=== PATIENT | male | born 1960 | race American Indian/Alaskan Native ===

== ENCOUNTER 2019-11-05 11:37 | Day surgery (SDC) | payer OTHER ==
[~2019-11-05 11:37] MED LIST: SODIUM CHLORIDE 0.9% 1000 ML 1,000 ML IV SCH
[2019-11-05] MEDS ORDERED: LIDOCAINE MPF (2%) 20 MG/1 ML VIAL 5 ML ONE (13:00)
--- NOTE | 2019-11-05 13:00 | Anesthesia Consultation ---
Anesthesia Consult and Med Hx Date of service: 11/05/19 - Airway Anesthetic Teeth Evaluation: Poor (broken off upper left back), Chipped (upper front) ROM Head & Neck: Adequate Mental/Hyoid Distance: Adequate Mallampati Class: Class II Intubation Access Assessment: Probably Good - Pre-Operative Health Status ASA Pre-Surgery Classification: ASA3 Proposed Anesthetic Plan: MAC - Pulmonary Hx Smoking: Yes (former smoker) Hx Asthma: No COPD: No Hx Pneumonia: No Hx Sleep Apnea: No - Cardiovascular System Hx Hypertension: Yes Hx Coronary Artery Disease: No Hx Heart Attack/AMI: Yes (non-STEMI March 2014) Hx Angina: No Hx Percutaneous Transluminal Coronary Angioplasty (PTCA): Yes Hx Pacemaker: No Hx Internal Defibrillator: No Hx Valvular Heart Disease: No Hx Heart Murmur: No Hx Peripheral Vascular Disease: No - Central Nervous System Hx Seizures: No CVA: No Hx Psychiatric Problems: No - Gastrointestinal Hx Ulcer: No Hx Gastroesophageal Reflux Disease: No (p) - Endocrine Hx Renal Disease: No Hx End Stage Renal Disease: No Hx Cirrhosis: No Hx Liver Disease: Yes (pencreatitis) Hx Hypothyroidism: No Hx Hyperthyroidism: No - Hematic Hx Anemia: No Hx Sickle Cell Disease: No - Other Systems Hx Alcohol Use: Yes (h/o ETOH abuse, quit 3 years ago) Hx Cancer: No
--- NOTE | 2019-11-05 13:01 | Anesthesia Day of Surgery ---
Anesthesia Day of Surgery - Day of Surgery Patient Examined: Yes Patient H&P Reviewed: Yes Patient is NPO: Yes
[2019-11-05] MEDS ORDERED: PROPOFOL 200 MG/20 ML VIAL IV ONE ×2 (13:03→13:04)
--- NOTE | 2019-11-05 13:36 | Discharge Summary ---
Short Stay Discharge Plan Activity: advance as tolerated Weight Bearing Status: Weight Bear as Tolerated Diet: regular Follow up with: MOISES BLANK [Other] - 7 Days
--- NOTE | 2019-11-05 13:36 | Operative Report ---
Operative Report Operative Report: Procedure: Colonoscopy with submucosal injection and snare polypectomy. Attending physician: Bill Campbell MD Communication Assistant: Bill Campbell MD Indication: Patient is a 59-year-old male who presents for colonoscopy, for colorectal cancer screening. A colonoscopy serves to evaluate patient so that treatment may be directed based on the findings. Consent: Informed consent was obtained after advising the patient and family regarding nature of this procedure, its indications, potential benefits as well as possible complications including but not limited to bleeding perforation and adverse reaction to medication, infection as well as other cardiopulmonary complications. An informed written and verbal consent was then obtained after due opportunity was provided for questions and answers. Monitoring: Patient was monitored continuously with pulse oximetry and electrocardiographic recordings as well as blood pressure recordings. Vital signs remained stable throughout this procedure with no untoward events. Preoperative assessment: Patient was assessed immediately prior to this procedure for capacity to tolerate monitored anesthesia care and moderate sedation as well as general anesthesia. Patient's ASA classification is 2, Mallampati class is 2, Hyomental distance is 3. Instrument: Olympus videocolonoscope CFHQ 190 AL. Medications: Propofol given intravenously in divided doses. For details please refer to anesthesia records. Description of procedure: Patient was placed in the left lateral decubitus position after achieving sedation, a digital rectal examination was performed following which the colonoscope was introduced into the anal verge and advanced to the cecum which was identified by the cecal valve, the appendiceal orifice, as well as by the cecal strap and direct transillumination. The colonoscope was subsequently withdrawn with careful inspection of all mucosal surfaces. Patient tolerated this procedure well and was subsequently taken to the recovery room. The following findings were noted. Findings: The [place] prep scale score was 6. Patient had a flat polyp measuring approximately 8-10 mm in the sigmoid colon. This was elevated with submucosal injection of saline and removed by snare electrocautery and retrieved. On the retroflex view at the anal verge, patient had internal hemorrhoids. Patient tolerated the procedure well with no untoward events. Impression: Flat sigmoid colon polyp status post submucosal injection and snare polypectomy. Internal hemorrhoids. Plan: Follow-up pathology report High-fiber diet. Repeat colonoscopy in 5 years if polyp polyp is adenomatous.
[2019-11-05 14:28] VITALS: BP 150/90
== END 2019-11-05 11:38 | disposition home or self-care (01) ==
LOC: GIO 11:37
PROVIDERS: ATTEND Internal Medicine Gastroenterology
DX: K62.5 Hemorrhage of anus and rectum (principal); K62.89 Other specified diseases of anus and rectum; K63.5 Polyp of colon; K64.8 Other hemorrhoids; K31.89 Other diseases of stomach and duodenum; I25.2 Old myocardial infarction; I10 Essential (primary) hypertension; I25.10 Atherosclerotic heart disease of native coronary artery without angina pectoris; K21.9 Gastro-esophageal reflux disease without esophagitis; K52.89 Other specified noninfective gastroenteritis and colitis; F10.20 Alcohol dependence, uncomplicated; Z72.89 Other problems related to lifestyle; Z79.899 Other long term (current) drug therapy; Z87.891 Personal history of nicotine dependence; Z79.82 Long term (current) use of aspirin; Z98.890 Other specified postprocedural states
CPT/HCPCS: 45381; 45385; 88305; J2704; J7030

== ENCOUNTER 2020-08-29 15:50 | Emergency (ER) | payer OTHER ==
[2020-08-29 16:01] VITALS: BP 130/82
== END 2020-08-29 19:20 | disposition left against medical advice (07) ==
LOC: ED 15:50
DX: R10.9 Unspecified abdominal pain (principal); Z53.21 Procedure and treatment not carried out due to patient leaving prior to being seen by health care provider

== ENCOUNTER 2020-08-31 03:44 | Emergency (ER) | payer OTHER ==
[2020-08-31 04:40] LABS: Basophils % (Auto) 0.6 % (0.0-1.8); Eosinophils # (Auto) 0.3 K/mm3 (0.0-0.4); Eosinophils % (Auto) 5.1 % (0.0-4.3); Hematocrit 41.8 % (35.5-45.6); Hemoglobin 13.9 gm/dl (11.8-15.2); Lymphocytes # (Auto) 2.3 K/mm3 (1.2-5.4); Lymphocytes % (Auto) 35.8 % (13.4-35.0); Mean Corpuscular HGB Conc 33 % (32-34); Mean Corpuscular Volume 84 fl (84-94); Monocytes # (Auto) 0.7 K/mm3 (0.0-0.8); Monocytes % (Auto) 11.9 % (0.0-7.3); Platelet Count 306 K/mm3 (140-440); Red Blood Count 4.97 M/mm3 (3.65-5.03); Red Cell Distribution Width 14.4 % (13.2-15.2)
[2020-08-31 04:52] LABS: Alanine Aminotransferase 13 units/L (7-56); Albumin 4.2 g/dL (3.9-5); BUN/Creatinine Ratio 15; Blood Urea Nitrogen 16 mg/dL (9-20); Calcium 9.8 mg/dL (8.4-10.2); Hemolysis Index 13
[2020-08-31] MEDS ORDERED: ONDANSETRON 4 MG/2 ML INJ IV ONE (07:54)
[2020-08-31] MEDS ORDERED: MORPHINE 4 MG/1 ML INJ IV ONE (07:54)
[2020-08-31] MEDS ORDERED: SODIUM CHLORIDE 0.9% 1000 ML 1,000 ML IV ONE (07:54)
--- NOTE | 2020-08-31 08:03 | Emergency Department Report ---
ED Abdominal Pain HPI - General Chief Complaint: Abdominal Pain Stated Complaint: STOMACH PAIN Time Seen by Provider: 08/31/20 07:39 Source: patient Mode of arrival: Ambulatory Limitations: No Limitations - History of Present Illness Initial Comments: Patient is a 60-year-old male who presents emergency room with complaints of left lower quadrant abdominal pain that radiates to his back that began 5 days ago. He denies any nausea, vomiting, diarrhea, hematochezia, hematemesis, melena, hematuria, urinary retention. He states he had a normal bowel movement yesterday. He has a past medical history of pancreatitis and states that his symptoms felt similar. He states that he had pancreatitis 5 years ago secondary to alcohol use but states that he completely quit drinking alcohol 5 years ago. He also has a history of prostate cancer and recently underwent surgery and radiation treatment last month at [facility]. Denies any allergies to medications. - Related Data Home Medications Medication Instructions Recorded Confirmed Last Taken Aspirin [Aspirin BABY CHEW TAB] 81 mg PO QDAY 07/04/17 11/05/19 10/30/19 Clopidogrel Bisulfate [Plavix] 75 mg PO DAILY 07/04/17 11/05/19 10/30/19 Dicyclomine 20 mg PO TID 07/10/17 11/05/19 07/04/17 Metoprolol 50 mg PO BID 11/05/19 11/05/19 10/30/19 Rosuvastatin (Nf) 40 mg PO DAILY 11/05/19 11/05/19 10/30/19 allopurinoL 100 mg PO DAILY 11/05/19 11/05/19 10/30/19 amLODIPine 10 mg PO DAILY 11/05/19 11/05/19 10/30/19 tiZANidine 4 mg PO DAILY 11/05/19 11/05/19 10/30/19 Previous Rx's Medication Instructions Recorded Last Taken Type Hydralazine HCl [Apresoline TAB] 50 mg PO Q8HR #90 tab 07/10/17 Unknown Rx Ondansetron [Zofran Odt] 4 mg PO Q8HR PRN #7 tab.rapdis 08/31/20 Unknown Rx traMADoL [Ultram 50 MG tab] 50 mg PO Q6HR PRN #10 tablet 08/31/20 Unknown Rx Allergies Allergy/AdvReac Type Severity Reaction Status Date / Time No Known Allergies Allergy Verified 04/01/14 04:42 ED Review of Systems ROS: Stated complaint: STOMACH PAIN Other details as noted in HPI Comment: All other systems reviewed and negative ED Past Medical Hx - Past Medical History Hx Hypertension: Yes Hx Heart Attack/AMI: Yes (non-STEMI March 2014) Hx Congestive Heart Failure: No Hx Diabetes: No Hx Deep Vein Thrombosis: No Hx Pulmonary Embolism: No Hx Liver Disease: Yes (pencreatitis) Hx Renal Disease: No Hx Sickle Cell Disease: No Hx Arthritis: No Hx Seizures: No Hx Kidney Stones: No Hx Asthma: No Hx COPD: No Hx Tuberculosis: No Hx Dementia: No Hx HIV: No - Surgical History Hx Coronary Stent: Yes (RCA 2013) Hx Open Heart Surgery: No Hx Pacemaker: No Hx Internal Defibrillator: No Hx Cholecystectomy: No Hx Appendectomy: No Hx Breast Surgery: No Additional Surgical History: right leg, prostate surgery Jul 2020. - Social History Smoking Status: Never Smoker Substance Use Type: None - Medications Home Medications: Home Medications Medication Instructions Recorded Confirmed Last Taken Type Aspirin [Aspirin BABY CHEW TAB] 81 mg PO QDAY 07/04/17 11/05/19 10/30/19 History Clopidogrel Bisulfate [Plavix] 75 mg PO DAILY 07/04/17 11/05/19 10/30/19 History Dicyclomine 20 mg PO TID 07/10/17 11/05/19 07/04/17 History Hydralazine HCl [Apresoline TAB] 50 mg PO Q8HR #90 tab 07/10/17 11/05/19 Unknown Rx Metoprolol 50 mg PO BID 11/05/19 11/05/19 10/30/19 History Rosuvastatin (Nf) 40 mg PO DAILY 11/05/19 11/05/19 10/30/19 History allopurinoL 100 mg PO DAILY 11/05/19 11/05/19 10/30/19 History amLODIPine 10 mg PO DAILY 11/05/19 11/05/19 10/30/19 History tiZANidine 4 mg PO DAILY 11/05/19 11/05/19 10/30/19 History Ondansetron [Zofran Odt] 4 mg PO Q8HR PRN #7 tab.rapdis 08/31/20 Unknown Rx traMADoL [Ultram 50 MG tab] 50 mg PO Q6HR PRN #10 tablet 08/31/20 Unknown Rx ED Physical Exam - General Limitations: No Limitations General appearance: alert, in no apparent distress - Head Head exam: Present: atraumatic, normocephalic - Eye Eye exam: Present: normal appearance - ENT ENT exam: Present: mucous membranes moist - Respiratory Respiratory exam: Present: normal lung sounds bilaterally. Absent: respiratory distress, wheezes, rales, rhonchi, stridor, chest wall tenderness, accessory muscle use, decreased breath sounds, prolonged expiratory - Cardiovascular Cardiovascular Exam: Present: regular rate, normal rhythm, normal heart sounds. Absent: systolic murmur, diastolic murmur, rubs, gallop - GI/Abdominal GI/Abdominal exam: Present: soft, tenderness (LLQ, epigastric), normal bowel sounds. Absent: distended, guarding, rebound, rigid - Neurological Exam Neurological exam: Present: alert, oriented X3 - Psychiatric Psychiatric exam: Present: normal affect, normal mood - Skin Skin exam: Present: warm, dry, intact ED Course Vital Signs 08/31/20 08/31/20 04:16 09:44 Temperature 98.1 F Pulse Rate 60 61 Respiratory 17 16 Rate Blood Pressure 138/86 Blood Pressure 131/84 [Left] O2 Sat by Pulse 96 99 Oximetry ED Medical Decision Making - Lab Data Result diagrams: 08/31/20 04:19 08/31/20 04:19 Lab Results 08/31/20 08/31/20 08/31/20 Range/Units 04:19 04:19 04:19 WBC 6.3 (4.5-11.0) K/mm3 RBC 4.97 (3.65-5.03) M/mm3 Hgb 13.9 (11.8-15.2) gm/dl Hct 41.8 (35.5-45.6) % MCV 84 (84-94) fl MCH 28 (28-32) pg MCHC 33 (32-34) % RDW 14.4 (13.2-15.2) % Plt Count 306 (140-440) K/mm3 Lymph % (Auto) 35.8 H (13.4-35.0) % Mcdonough % (Auto) 11.9 H (0.0-7.3) % Eos % (Auto) 5.1 H (0.0-4.3) % Baso % (Auto) 0.6 (0.0-1.8) % Lymph # (Auto) 2.3 (1.2-5.4) K/mm3 Mcdonough # (Auto) 0.7 (0.0-0.8) K/mm3 Eos # (Auto) 0.3 (0.0-0.4) K/mm3 Baso # (Auto) 0.0 (0.0-0.1) K/mm3 Seg Neutrophils % 46.6 (40.0-70.0) % Seg Neutrophils # 2.9 (1.8-7.7) K/mm3 Sodium 138 (137-145) mmol/L Potassium 4.1 (3.6-5.0) mmol/L Chloride 103.0 (98-107) mmol/L Carbon Dioxide 25 (22-30) mmol/L Anion Gap 14 mmol/L BUN 16 (9-20) mg/dL Creatinine 1.1 (0.8-1.3) mg/dL Estimated GFR > 60 ml/min BUN/Creatinine Ratio 15 % Glucose 93 (75-100) mg/dL Calcium 9.8 (8.4-10.2) mg/dL Total Bilirubin 0.20 (0.1-1.2) mg/dL AST 17 (5-40) units/L ALT 13 (7-56) units/L Alkaline Phosphatase 82 (35-129) units/L Total Protein 7.2 (6.3-8.2) g/dL Albumin 4.2 (3.9-5) g/dL Albumin/Globulin Ratio 1.4 % Lipase 56 (13-60) units/L Urine Bilirubin (Negative) Urine RBC (Auto) (0.0-6.0) /HPF U Epithel Cells (Auto) (0-13.0) /HPF 08/31/20 Range/Units 08:12 WBC (4.5-11.0) K/mm3 RBC (3.65-5.03) M/mm3 Hgb (11.8-15.2) gm/dl Hct (35.5-45.6) % MCV (84-94) fl MCH (28-32) pg MCHC (32-34) % RDW (13.2-15.2) % Plt Count (140-440) K/mm3 Lymph % (Auto) (13.4-35.0) % Mcdonough % (Auto) (0.0-7.3) % Eos % (Auto) (0.0-4.3) % Baso % (Auto) (0.0-1.8) % Lymph # (Auto) (1.2-5.4) K/mm3 Mcdonough # (Auto) (0.0-0.8) K/mm3 Eos # (Auto) (0.0-0.4) K/mm3 Baso # (Auto) (0.0-0.1) K/mm3 Seg Neutrophils % (40.0-70.0) % Seg Neutrophils # (1.8-7.7) K/mm3 Sodium (137-145) mmol/L Potassium (3.6-5.0) mmol/L Chloride (98-107) mmol/L Carbon Dioxide (22-30) mmol/L Anion Gap mmol/L BUN (9-20) mg/dL Creatinine (0.8-1.3) mg/dL Estimated GFR ml/min BUN/Creatinine Ratio % Glucose (75-100) mg/dL Calcium (8.4-10.2) mg/dL Total Bilirubin (0.1-1.2) mg/dL AST (5-40) units/L ALT (7-56) units/L Alkaline Phosphatase (35-129) units/L Total Protein (6.3-8.2) g/dL Albumin (3.9-5) g/dL Albumin/Globulin Ratio % Lipase (13-60) units/L Urine Bilirubin Neg (Negative) Urine RBC (Auto) 2.0 (0.0-6.0) /HPF U Epithel Cells (Auto) < 1.0 (0-13.0) /HPF - Radiology Data Radiology results: report reviewed CT ABDOMEN AND PELVIS WITH CONTRAST INDICATION / CLINICAL INFORMATION: LLQ abd pain, hx of prostate CA. TECHNIQUE: Axial CT images were obtained through the abdomen and pelvis after 100 mL of Omnipaque [address] scans at this location are performed using CT dose reduction for ALARA by means of automated exposure control. COMPARISON: CT dated 07/04/2017 FINDINGS: LOWER CHEST: Unremarkable LIVER: Unremarkable GALLBLADDER/BILIARY TREE: Unremarkable PANCREAS: Unremarkable SPLEEN: Unremarkable ADRENALS: Unremarkable KIDNEYS / URETER: There is a 2.2 x 2.0 x 2.4 cm (series 2 image 61 and series 601 image 172) focal masslike region in the region of the superior pole right renal calyx. Tiny nonobstructing left renal calculus. No ureteral calculus or hydronephrosis. URINARY BLADDER: Unremarkable PROSTATE: Unremarkable as visualized. STOMACH / SMALL BOWEL: Stomach and small bowel are normal in caliber. No evidence of bowel inflammation. COLON: Colon is unremarkable. The appendix is normal in caliber. LYMPH NODES: No significant adenopathy. VASCULATURE: No significant abnormality. OTHER: No free air, free fluid, or focal fluid collection is identified. SKELETAL SYSTEM: No acute osseous findings. 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 Severe disc and endplate changes noted at L2-L3, also unchanged. No suspicious blastic or lytic lesions identified. IMPRESSION: 1. No acute process of the abdomen or pelvis. 2. 2.4 cm masslike region in the region of the superior pole right renal calyx. This is indeterminate and further evaluation with MRI with renal mass protocol is re commended. 3. Other stable chronic and incidental findings as above. IMPORTANT FINDING: Time of Communication (MARBLEIZER/CDT): 08/31/2020 at 8:00 AM Licensed Practitioner Receiving Report: Dr. Lopez Signer Name: Germán Briscoe MD Signed: 08/31/2020 9:00 AM Workstation Name: [id number] Transcribed By: JORGE Dictated By: GERMÁN DORSEY MD Electronically Authenticated By: GERMÁN DORSEY MD Signed Date/Time: 08/31/20899 DD/ 7 TD/TT: - Medical Decision Making Patient is a 60-year-old male who presents emergency room with complaints of left lower quadrant abdominal pain that radiates to his back that began 5 days ago. He denies any nausea, vomiting, diarrhea, hematochezia, hematemesis, melena, hematuria, urinary retention. He states he had a normal bowel movement yesterday. He has a past medical history of pancreatitis and states that his symptoms felt similar. He states that he had pancreatitis 5 years ago secondary to alcohol use but states that he completely quit drinking alcohol 5 years ago. He also has a history of prostate cancer and recently underwent surgery and radiation treatment last month at [facility]. Denies any allergies to medications. VSS. on exam: LLQ, epigastric tenderness palpation, no guarding, no rebound, no rigidity, normal bowel sounds, no peritoneal signs. Labs are normal. UA is within normal limits. CT abdomen pelvis with IV contrast: 1. No acute process of the abdomen or pelvis. 2. 2.4 cm masslike region in the region of the superior pole right renal calyx. This is indeterminate and further evaluation with MRI with renal mass protocol is recommended. 3. Other stable chronic and incidental findings as above. Discussed findings with Dr. Luisa Lopez, ER attending who advised outpatient follow-up for CT findings. Discussed all findings with patient and answered questions. Discussed the importance of follow-up with patient and patient given his CT report. Patient given pain medication while in the ED as he did not drive and symptoms improved. Patient given prescription for tramadol and Zofran. Advised patient Please take medication as prescribed as needed. Do not drive or operate machinery while taking pain medication. Increase your water intake. Follow-up with your primary care doctor. Follow-up with your cancer doctor at [facility]. Please take your CT report with you. Return to emergency room immediately for any new or worsening symptoms. - Differential Diagnosis Diverticulitis, colitis, pancreatitis, obstruction, metastatic cancer Critical care attestation.: If time is entered above; I have spent that time in minutes in the direct care of this critically ill patient, excluding procedure time. ED Disposition Clinical Impression: Renal mass Abdominal pain Qualifiers: Abdominal location: left lower quadrant Qualified Code(s): R10.32 - Left lower quadrant pain Disposition: DC-01 TO HOME OR SELFCARE Is pt being admited?: No Does the pt Need Aspirin: No Condition: Stable Instructions: Renal Mass, Abdominal Pain, Adult, [id number] Additional Instructions: Please take medication as prescribed as needed. Do not drive or operate machinery while taking pain medication. Increase your water intake. Follow-up with your primary care doctor. Follow-up with your cancer doctor at [facility]. Please take your CT report with you. Return to emergency room immediately for any new or worsening symptoms. Prescriptions: traMADoL [Ultram 50 MG tab] 50 mg PO Q6HR PRN #10 tablet PRN Reason: Pain Ondansetron [Zofran Odt] 4 mg PO Q8HR PRN #7 tab.rapdis PRN Reason: Nausea And Vomiting Referrals: PRIMARY CARE,MD [Primary Care Provider] - 2-3 Days Forms: Work/School Release Form(ED) Time of Disposition: 09:17 Print Language: LAO
[2020-08-31 08:41] LABS: Bilirubin,Urine NEG (Negative); Blood,Urine NEG (Negative); Color,Urine Yellow (Yellow); Protein,Urine <15 mg/dL mg/dL (Negative); Urobilinogen,Urine < 2.0 mg/dL (<2.0)
--- NOTE | 2020-08-31 09:05 | Cat Scan Report ---
CT ABDOMEN AND PELVIS WITH CONTRAST INDICATION / CLINICAL INFORMATION: LLQ abd pain, hx of prostate CA. TECHNIQUE: Axial CT images were obtained through the abdomen and pelvis after 100 mL of Omnipaque [address] scans at this location are performed using CT dose reduction for ALARA by means of automated exposure control. COMPARISON: CT dated 07/04/2017 FINDINGS: LOWER CHEST: Unremarkable LIVER: Unremarkable GALLBLADDER/BILIARY TREE: Unremarkable PANCREAS: Unremarkable SPLEEN: Unremarkable ADRENALS: Unremarkable KIDNEYS / URETER: There is a 2.2 x 2.0 x 2.4 cm (series 2 image 61 and series 601 image 172) focal ma sslike region in the region of the superior pole right renal calyx. Tiny nonobstructing left renal ca lculus. No ureteral calculus or hydronephrosis. URINARY BLADDER: Unremarkable PROSTATE: Unremarkable as visualized. STOMACH / SMALL BOWEL: Stomach and small bowel are normal in caliber. No evidence of bowel inflammati on. COLON: Colon is unremarkable. The appendix is normal in caliber. LYMPH NODES: No significant adenopathy. VASCULATURE: No significant abnormality. OTHER: No free air, free fluid, or focal fluid collection is identified. SKELETAL SYSTEM: No acute osseous findings. There is bilateral femoral head AVN without subchondral c ollapse. Severe disc and endplate changes noted at L2-L3, also unchanged. No suspicious blastic or ly tic lesions identified. IMPRESSION: 1. No acute process of the abdomen or pelvis. 2. 2.4 cm masslike region in the region of the superior pole right renal calyx. This is indeterminate and further evaluation with MRI with renal mass protocol is recommended. 3. Other stable chronic and incidental findings as above. IMPORTANT FINDING: Time of Communication (WINDOW CASER/CDT): 08/31/2020 at 8:00 AM Licensed Practitioner Receiving Report: Dr. Lopez Signer Name: Hermann Briscoe MD Signed: 08/31/2020 9:00 AM Workstation Name: [id number]
[2020-08-31 09:45] VITALS: BP 131/84
== END 2020-08-31 09:44 | disposition home or self-care (01) ==
LOC: ED 03:44
DX: N28.89 Other specified disorders of kidney and ureter (principal); R10.32 Left lower quadrant pain; I10 Essential (primary) hypertension; I25.2 Old myocardial infarction; Z79.899 Other long term (current) drug therapy; Z98.890 Other specified postprocedural states
CPT/HCPCS: 36415; 74177; 80053; 81001; 83690; 85025; 96361; 96374; 96375; 99284; J2270; J2405; J7030; Q9967

== ENCOUNTER 2020-09-29 09:39 | Outpatient (CLI) | payer OTHER ==
--- NOTE | 2020-09-29 13:29 | Magnetic Resonance Report ---
EXAMINATION: MR abdomen wo/w con. 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 CONTRAST MEDIA: 19 mL ProHance IV. COMPARISON: CT from 08/31/2020 Abdomen: Motion artifact grades image quality on multiple sequences. Visualized lung bases: Unremarkable MR appearance. Liver: Normal Gallbladder: Unremarkable Spleen: Normal Adrenal glands: Normal Kidneys: There is a 1.7 x 1.5 x 1.5 cm enhancing mass centrally within the region of the superior silviano e right renal calyces. Pancreas: Normal Regional Bowel: Unremarkable Vasculature: Unremarkable Lymph: No significant lymphadenopathy. Other findings: None of significance. Osseous structures: No marrow signal abnormality. IMPRESSION: 1.7 cm enhancing mass in the region of the superior pole right renal calyces. Findings are concerning for neoplasm, though atypical for renal cell carcinoma. 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 Multiphase CT of the abdomen with and without (CT urogram) may be helpful for f urther evaluation. Signer Name: Hermann Briscoe MD Signed: 09/29/2020 1:25 PM Workstation Name: [id number]
== END 2020-09-29 09:40 | disposition home or self-care (01) ==
LOC: MRI 09:39
PROVIDERS: ATTEND Urology
DX: D41.11 Neoplasm of uncertain behavior of right renal pelvis (principal); N28.89 Other specified disorders of kidney and ureter
CPT/HCPCS: 74183; A9577

== ENCOUNTER 2020-10-03 06:45 | Day surgery (SDC) | payer OTHER ==
[2020-09-27 12:04] LABS: Hematocrit 42.7 % (35.5-45.6); Hemoglobin 14.7 gm/dl (11.8-15.2); Mean Corpuscular HGB Conc 34 % (32-34); Mean Corpuscular Volume 84 fl (84-94); Platelet Count 283 K/mm3 (140-440); Red Blood Count 5.08 M/mm3 (3.65-5.03); Red Cell Distribution Width 15.2 % (13.2-15.2)
[2020-09-27 12:24] LABS: Alanine Aminotransferase 18 units/L (7-56); Albumin 4.4 g/dL (3.9-5); BUN/Creatinine Ratio 11; Blood Urea Nitrogen 11 mg/dL (9-20); Hemolysis Index 7
[2020-10-03] MEDS ORDERED: ONDANSETRON 4 MG/2 ML INJ IV PRN (07:29)
[2020-10-03] MEDS ORDERED: HYDROmorphone 1 MG/1 ML INJ IV PRN ×2 (07:29)
[2020-10-03] MEDS ORDERED: LACTATED RINGERS 1,000 ML IV SCH (07:30)
--- NOTE | 2020-10-03 07:31 | Anesthesia Day of Surgery ---
Anesthesia Day of Surgery - Day of Surgery Patient Examined: Yes Patient H&P Reviewed: Yes Patient is NPO: Yes
--- NOTE | 2020-10-03 07:32 | Anesthesia Consultation ---
Anesthesia Consult and Med Hx Date of service: 10/03/20 - Airway Anesthetic Teeth Evaluation: Chipped ROM Head & Neck: Adequate Mental/Hyoid Distance: Adequate Mallampati Class: Class II Intubation Access Assessment: Good - Pre-Operative Health Status ASA Pre-Surgery Classification: ASA3 Proposed Anesthetic Plan: General - Pulmonary Hx Smoking: Yes (STOPPED 1980) Hx Respiratory Symptoms: No (+2FS) Hx Sleep Apnea: No (SUKI PRE SCREEN HIGH RISK) - Cardiovascular System Hx Hypertension: Yes Hx Coronary Artery Disease: Yes Hx Heart Attack/AMI: Yes (non-STEMI March 2014. Last saw casting technician [id number]) Hx Percutaneous Transluminal Coronary Angioplasty (PTCA): Yes - Central Nervous System Hx Back Pain: Yes (AND NECK PAIN) - Gastrointestinal Hx Ulcer: Yes Hx Gastroesophageal Reflux Disease: No - Endocrine Hx Renal Disease: Yes (RT RENAL MASS) Hx Liver Disease: Yes (pancreatitis from EtOH. Stopped drinking five years ago) - Hematic Hx Anemia: No - Other Systems Hx Alcohol Use: Yes (h/o ETOH abuse, quit 5 years ago) Hx Substance Use: No Hx Cancer: Yes Hx Obesity: Yes
[2020-10-03] MEDS ORDERED: dexAMETHasone 20 MG/5 ML VIAL ONE (07:36)
[2020-10-03] MEDS ORDERED: PHENYLEPHRINE/NS 1,000 MCG/10 ML SYRINGE (OR USE) IV ONE (07:36)
[2020-10-03] MEDS ORDERED: propofoL 200 MG/20 ML VIAL IV ONE (07:36)
[2020-10-03] MEDS ORDERED: LIDOCAINE MPF (2%) 20 MG/1 ML VIAL 5 ML ONE (07:36)
[2020-10-03] MEDS ORDERED: fentaNYL 100 MCG/2 ML INJ ONE (07:36)
[2020-10-03] MEDS ORDERED: GLYCOPYRROLATE 0.4 MG/2 ML INJ ONE (07:37)
[2020-10-03] MEDS ORDERED: WATER FOR IRRIG STERILE 2000 ML IR ONE (08:00)
[2020-10-03] MEDS ORDERED: IOHEXOL 300 MG/ML 50ML IV ONE (08:00)
[2020-10-03] MEDS ORDERED: WATER FOR IRRIG STERILE 1,500 ML BOTTLE IR ONE (08:00)
[2020-10-03] MEDS ORDERED: MIDAZOLAM 2 MG/2 ML INJ IV ONE (09:00)
[2020-10-03] MEDS ORDERED: ceFAZolin/STERILE WATER 2 GM/20 ML SYRINGE IV NR (09:03)
--- NOTE | 2020-10-03 10:03 | Post Anesthesia Evaluation ---
- Post Anesthesia Evaluation Patient Participated: Yes Airway Patent: Yes Stable Respiratory Function: Yes Nausea/Vomiting: No Temp > 96.8F: Yes Pain Manageable: Yes Adequeate Hydration: Yes Anesthesia Complications: No Block Receding Appropriately: Not Applicable Patient on Ventilator: No
[2020-10-03 11:59] VITALS: BP 124/80
--- NOTE | 2020-10-03 13:43 | Post Operative Note ---
Date of procedure: 10/03/20 Pre-op diagnosis: hematuria Post-op diagnosis: same Findings: normal Procedure: cysto rpgs Anesthesia: GETA Surgeon: BREANNA SLOAN Estimated blood loss: none Pathology: none Condition: stable Disposition: PACU
--- NOTE | 2020-10-03 13:43 | Discharge Summary ---
Short Stay Discharge Plan Activity: no restrictions Weight Bearing Status: Full Weight Bearing Diet: low fat, low cholesterol, low salt Special Instructions: other (inc fluids ) Additional Instructions: ACTIVITY - NO STRENUOUS ACTIVITIES. DIET- LOW SALT, LOW FAT, LOW CHOLESTEROL DO DRINK ABOUT 8 CUPS OF WATER PER DAY. PRESCRIPTION GIVEN FOR ANTIBIOTIC - TAKE DIRECTED. APPOINTMENT -DR SLOAN WANTS TO SEE YOU IN 7 DAYS. CALL FOR APPOINTMENT AND FOR ANY QUESTIONS OR CONCERNS RELATED TO YOUR PROCEDURE. Follow up with: PRIMARY MD YINKA [Primary Care Provider] - 7 Days BREANNA SLOAN MD [Staff Physician] - 7 Days Forms: Outpatient Surgery DC Inst.
--- NOTE | 2020-10-03 14:06 | Operative Report ---
PREOPERATIVE DIAGNOSES: Hematuria, right renal mass, left flank pain. POSTOPERATIVE DIAGNOSES: Hematuria, right renal mass, left flank pain. PROCEDURE: Cystoscopy, retrograde. SURGEON: Dr. Kirk. ANESTHESIA: General. FINDINGS: This is a gentleman with left flank pain. He had prostate cancer. He has evidence of a right renal mass, which enhances in centrally located, now presents for cystoscopy. DESCRIPTION OF PROCEDURE: The patient was brought to the operating room and place on the operating table. Following induction of anesthesia, placed in lithotomy position, prepped and draped in the usual sterile fashion. Cystourethroscopy showed a slightly narrowed membranous urethra. Bladder was not trabeculated. Retrograde showed delicate system bilaterally. No evidence of an intrinsic mass in the collecting system. The patient tolerated the procedure well. There was no obstruction, good drainage, no stones on either side, brought to recovery room in stable condition. JOB# [id number] RAY/BALJIT
--- NOTE | 2020-10-03 14:10 | Fluoroscopy Report ---
FLUOROSCOPY RETROGRADE UROGRAPHY HISTORY: Prostate cancer FINDINGS: Fluoroscopy was provided by radiology during retrograde urography by the urologist. There i s normal filling of both renal collecting systems. No filling defect or abnormal dilatation is identi fied. IMPRESSION: Unremarkable bilateral retrograde pyelograms Fluoroscopy time: 21 seconds Fluoroscopic images: 7 Signer Name: Nico Arndt Jr, MD Signed: 10/03/2020 2:05 PM Workstation Name: [id number]
== END 2020-10-03 06:46 | disposition home or self-care (01) ==
LOC: OR 06:45
PROVIDERS: ATTEND Urology
DX: R31.9 Hematuria, unspecified (principal); Z20.828 Contact with and (suspected) exposure to other viral communicable diseases; F10.20 Alcohol dependence, uncomplicated; I25.2 Old myocardial infarction; I25.10 Atherosclerotic heart disease of native coronary artery without angina pectoris; I10 Essential (primary) hypertension; E78.00 Pure hypercholesterolemia, unspecified; E66.9 Obesity, unspecified; Z85.46 Personal history of malignant neoplasm of prostate; Z79.82 Long term (current) use of aspirin; Z79.899 Other long term (current) drug therapy; Z87.891 Personal history of nicotine dependence; Z95.5 Presence of coronary angioplasty implant and graft; Z87.440 Personal history of urinary (tract) infections; Z72.89 Other problems related to lifestyle; Z98.890 Other specified postprocedural states; Z68.32 Body mass index [BMI] 32.0-32.9, adult
CPT/HCPCS: 36415; 52005; 74420; 80053; 85027; A4217; C1758; C1769; J1100; J2250; J2370; J2405; J2704; J3010; J7120; Q9967; U0003